=== PATIENT | male | born 1975 | race Caucasian/White ===

== ENCOUNTER 2018-03-01 19:06 | Emergency (ER) | payer OTHER ==
[2018-03-01] MEDS: SOD CHLORIDE 0.9% 1,000 ML IV (20:19)
== END 2018-03-01 21:01 | disposition home or self-care (01) ==
LOC: E/R 19:06
DX: E11.65 Type 2 diabetes mellitus with hyperglycemia (principal)
CPT/HCPCS: 36415; 82962; 93005; 99284-25